=== PATIENT | male | born 1940 | race Caucasian/White ===

== ENCOUNTER 2022-08-03 19:32 | Emergency (ER) | payer OTHER ==
[~2022-08-03] VITALS: Ht 167.6 cm; Wt 83.5 kg
--- NOTE | 2022-08-03 19:44 | NUR ---
ER Dr HOLLY at bedside examining patient.
[2022-08-03 19:49] VITALS: BP_SYST 100
--- NOTE | 2022-08-03 19:52 | NUR ---
Placed in room 2 . Placed on monitor technician, blood pressure machine and pulse oximeter. To gown for exam. Side rails up. Report given to Marlee VARGAS.
--- NOTE | 2022-08-03 20:00 | NUR ---
# 20 gauge angiocath placed to RFA. Use of asceptic technique. Opsite placed over site. Blood return noted. Blood for lab drawn from site. Flushed with 10 cc of normal saline. No evidence of infiltration noted. Patient tolerated well.
--- NOTE | 2022-08-03 21:40 | NUR ---
CLEANED PT FACE HANDS WITH STERILE WATER AND TOWELS, HELPED PT CHANGE INTO CLEAN CLOTHES, PLACE GUAZE AND COBAN OVER CUT DUE TO PT REQUEST. VSS, NAD EVEN UNLABORED RR. SAFETY PERCAUTIONS IN PLACE.
[2022-08-03 22:14] VITALS: BP_SYST 124
--- NOTE | 2022-08-03 22:16 | NUR ---
Patient given written and verbal discharge instructions and verbalizes understanding. ER MD discussed with patient the results and treatment provided. Patient in stable condition. ID arm band removed. IV catheter removed intact and dressing applied, no active bleeding. Patient educated on HEAD INJURY and to follow up with PMD. Pain Scale . Opportunity for questions provided and answered. Medication side effect fact sheet provided.
== END 2022-08-03 22:16 | disposition home or self-care (01) ==
LOC: SED 19:32
DX: S01.81XA Laceration without foreign body of other part of head, initial encounter (principal); J44.9 Chronic obstructive pulmonary disease, unspecified; I10 Essential (primary) hypertension; Z79.899 Other long term (current) drug therapy; W19.XXXA Unspecified fall, initial encounter; Y93.89 Activity, other specified; Y92.89 Other specified places as the place of occurrence of the external cause; Y99.8 Other external cause status
CPT/HCPCS: 70450-TC; 72125-TC; 76376; 99284